=== PATIENT | female | born 1985 | race Caucasian/White ===

== ENCOUNTER 2018-01-28 23:53 | Emergency (ER) | payer OTHER ==
[2018-01-29] MEDS ORDERED: SODIUM CHLORIDE 0.9% 1,000 ML IV STA (00:06)
[2018-01-29] MEDS ORDERED: ONDANSETRON 4 MG/2 ML VIAL IVP STA (00:06)
[2018-01-29] MEDS ORDERED: KETOROLAC 30 MG/ML 1 ML VIAL IVP STA (00:06)
[2018-01-29] MEDS ORDERED: MORPHINE SULFATE 4MG/4ML SYRG IVP STA (00:06)
--- NOTE | 2018-01-29 00:08 | ED ---
Abdominal Pain HPI - General Chief Complaint: Abdominal Pain Stated Complaint: abd pain Time Seen by Provider: 01/29/18 00:01 Source: patient Mode of arrival: ambulatory Limitations: no limitations - History of Present Illness Initial Comments: 32-year-old female patient presents to the emergency department today for complaints of left flank pain. Patient states the pain started approximately 8: 30 this evening. States that the pain was sudden onset is a sharp crampy pain and has worsened in severity since then. Patient states that she has vomited multiple times. States that she has felt chills. Denies any fever. States that she did have an episode of diarrhea with this. Patient denies any abdominal pain. Denies any hematuria, dysuria, urinary frequency, urinary urgency. States that she is currently on her period denies chance of . Patient denies any history of kidney stones or abdominal surgeries. Patient denies any recent rash, shortness breath, chest pain, numbness, tingling , dizziness, weakness, headache, visual changes, or any other complaints. - Related Data Previous Rx's Medication Instructions Recorded Hydrocodone/Acetaminophen [[place] 1 tab PO Q6HR PRN #12 tab 01/29/18 5-325] Ibuprofen [Motrin] 600 mg PO Q8HR PRN #30 tab 01/29/18 Ondansetron [Zofran ODT] 4 mg PO Q8HR PRN #10 tab 01/29/18 Tamsulosin HCl [Flomax] 0.4 mg PO DAILY #7 cap 01/29/18 Allergies Allergy/AdvReac Type Severity Reaction Status Date / Time No Known Allergies Allergy Verified 01/28/18 23:58 Review of Systems ROS Statement: Those systems with pertinent positive or pertinent negative responses have been documented in the HPI. ROS Other: All systems not noted in ROS Statement are negative. Past Medical History Past Medical History: No Reported History History of Any Multi-Drug Resistant Organisms: None Reported Past Surgical History: No Surgical Hx Reported Past Psychological History: No Psychological Hx Reported Smoking Status: Never smoker Past Alcohol Use History: Occasional Past Drug Use History: None Reported General Exam Limitations: no limitations General appearance: alert, in no apparent distress, other (This is a well- developed, well-nourished adult female patient in no acute distress. Vital signs upon presentation are temperature 97.2F, pulse 76, respirations 18, blood pressure 133/80, pulse ox 100% on room air.) Eye exam: Present: normal appearance, PERRL, EOMI. Absent: scleral icterus, conjunctival injection, periorbital swelling ENT exam: Present: normal exam, normal oropharynx, mucous membranes moist Respiratory exam: Present: normal lung sounds bilaterally. Absent: respiratory distress, wheezes, rales, rhonchi, stridor Cardiovascular Exam: Present: regular rate, normal rhythm, normal heart sounds. Absent: systolic murmur, diastolic murmur, rubs, gallop, clicks GI/Abdominal exam: Present: soft, normal bowel sounds. Absent: distended, tenderness, guarding, rebound, rigid Back exam: Present: normal inspection, CVA tenderness (L). Absent: CVA tenderness (R) Neurological exam: Present: alert, oriented X3, CN II-XII intact Psychiatric exam: Present: normal affect, normal mood Skin exam: Present: warm, dry, intact, normal color. Absent: rash Course Vital Signs 01/28/18 23:56 Temperature 97.2 F L Pulse Rate 76 Respiratory 18 Rate Blood Pressure 133/80 O2 Sat by Pulse 100 Oximetry Medical Decision Making - Medical Decision Making 32-year-old female patient presented to the emergency department today with complaints of left flank pain and vomiting. Physical examination did reveal some mild left flank tenderness. Abdomen was soft and nontender. Labs reviewed and did reveal an elevated BUN at 21. Urinalysis was positive for greater than 182 red blood cells. HCG was negative. KUB of the abdomen was overall unremarkable however did show a suspicious calcification in the left pelvis. CT of the abdomen and pelvis was obtained and did show a small calculus in the left distal ureter causing obstruction with hydronephrosis. Patient was informed of all results. She is instructed to follow-up with urology soon as possible. She'll be given pain management, nausea management and Flomax for her symptoms. Return parameters discussed in detail. She verbalizes understanding and agrees with this plan. - Lab Data Result diagrams: 01/29/18 00:15 01/29/18 00:15 Lab Results 01/29/18 01/29/18 01/29/18 Range/Units 00:15 00:15 00:50 WBC 8.7 (3.8-10.6) k/uL RBC 5.01 (3.80-5.40) m/uL Hgb 14.2 (11.4-16.0) gm/dL Hct 40.6 (34.0-46.0) % MCV 81.1 (80.0-100.0) fL MCH 28.4 (25.0-35.0) pg MCHC 35.1 (31.0-37.0) g/dL RDW 12.7 (11.5-15.5) % Plt Count 318 (150-450) k/uL Neutrophils % 68 % Lymphocytes % 23 % Monocytes % 3 % Eosinophils % 4 % Basophils % 1 % Neutrophils # 6.0 (1.3-7.7) k/uL Lymphocytes # 2.0 (1.0-4.8) k/uL Monocytes # 0.3 (0-1.0) k/uL Eosinophils # 0.4 (0-0.7) k/uL Basophils # 0.0 (0-0.2) k/uL Sodium 144 (137-145) mmol/L Potassium 3.4 L (3.5-5.1) mmol/L Chloride 107 (98-107) mmol/L Carbon Dioxide 20 L (22-30) mmol/L Anion Gap 17 mmol/L BUN 21 H (7-17) mg/dL Creatinine 0.90 (0.52-1.04) mg/dL Est GFR (CKD-EPI)AfAm >90 (>60 ml/min/1.73 sqM) Est GFR (CKD-EPI)NonAf 87 (>60 ml/min/1.73 sqM) Glucose 114 H (74-99) mg/dL Calcium 9.8 (8.4-10.2) mg/dL Total Bilirubin 0.3 (0.2-1.3) mg/dL AST 16 (14-36) U/L ALT 21 (9-52) U/L Alkaline Phosphatase 75 (38-126) U/L Total Protein 7.2 (6.3-8.2) g/dL Albumin 4.3 (3.5-5.0) g/dL Amylase 65 (30-110) U/L Lipase 90 (23-300) U/L Urine Color Urine Appearance (Clear) Urine pH (5.0-8.0) Ur Specific [place] (1.001-1.035) Urine Protein (Negative) Urine Glucose (UA) (Negative) Urine Ketones (Negative) Urine Blood (Negative) Urine Nitrite (Negative) Urine Bilirubin (Negative) Urine Urobilinogen (<2.0) mg/dL Ur Leukocyte Esterase (Negative) Urine RBC (0-5) /hpf Urine WBC (0-5) /hpf Ur Squamous Epith Cells (0-4) /hpf Urine Mucus (None) /hpf Urine HCG, Qual Not Detected (Not Detectd) 01/29/18 Range/Units 00:50 WBC (3.8-10.6) k/uL RBC (3.80-5.40) m/uL Hgb (11.4-16.0) gm/dL Hct (34.0-46.0) % MCV (80.0-100.0) fL MCH (25.0-35.0) pg MCHC (31.0-37.0) g/dL RDW (11.5-15.5) % Plt Count (150-450) k/uL Neutrophils % % Lymphocytes % % Monocytes % % Eosinophils % % Basophils % % Neutrophils # (1.3-7.7) k/uL Lymphocytes # (1.0-4.8) k/uL Monocytes # (0-1.0) k/uL Eosinophils # (0-0.7) k/uL Basophils # (0-0.2) k/uL Sodium (137-145) mmol/L Potassium (3.5-5.1) mmol/L Chloride (98-107) mmol/L Carbon Dioxide (22-30) mmol/L Anion Gap mmol/L BUN (7-17) mg/dL Creatinine (0.52-1.04) mg/dL Est GFR (CKD-EPI)AfAm (>60 ml/min/1.73 sqM) Est GFR (CKD-EPI)NonAf (>60 ml/min/1.73 sqM) Glucose (74-99) mg/dL Calcium (8.4-10.2) mg/dL Total Bilirubin (0.2-1.3) mg/dL AST (14-36) U/L ALT (9-52) U/L Alkaline Phosphatase (38-126) U/L Total Protein (6.3-8.2) g/dL Albumin (3.5-5.0) g/dL Amylase (30-110) U/L Lipase (23-300) U/L Urine Color Yellow Urine Appearance Clear (Clear) Urine pH 6.5 (5.0-8.0) Ur Specific [place] 1.020 (1.001-1.035) Urine Protein Trace H (Negative) Urine Glucose (UA) Negative (Negative) Urine Ketones 1+ H (Negative) Urine Blood Large H (Negative) Urine Nitrite Negative (Negative) Urine Bilirubin Negative (Negative) Urine Urobilinogen <2.0 (<2.0) mg/dL Ur Leukocyte Esterase Negative (Negative) Urine RBC >182 H (0-5) /hpf Urine WBC 2 (0-5) /hpf Ur Squamous Epith Cells 3 (0-4) /hpf Urine Mucus Rare H (None) /hpf Urine HCG, Qual (Not Detectd) - Radiology Data Radiology results: report reviewed, image reviewed Two-view x-ray of the two-view x-ray of the abdomen shows bowel gas pattern is normal. No sign of intestinal obstruction or pneumoperitoneum. Fecal pattern is normal. I see no pathologic calcifications. Lung bases are clear. There is a faint 3 mm calcification in the pelvis on the left side. Impression by Dr. Trevino shows nonacute abdomen. No evidence of renal calculus. Left- sided pelvic calcification is uncertain significance. Distal ureteral stone is possible. CT of the abdomen and pelvis without contrast was obtained. Report was reviewed in its entirety. Impression by Dr. Trevino shows small calculus obstructing the left upper collecting system of the distal left ureter with left -sided hydronephrosis and perinephric edema. Multiple bilateral small renal calculi. Disposition Clinical Impression: Kidney stone on left side, Hydronephrosis Disposition: HOME SELF-CARE Condition: Good Instructions: Kidney Stones (ED), How to Strain Your Urine (ED) Additional Instructions: Increase fluids. Take medications as directed. Follow-up with urology as soon as possible. Return here immediately for any new, worsening, or concerning symptoms. Prescriptions: Hydrocodone/Acetaminophen [[place] 5-325] 1 tab PO Q6HR PRN #12 tab PRN Reason: Pain Ibuprofen [Motrin] 600 mg PO Q8HR PRN #30 tab PRN Reason: Pain Ondansetron [Zofran ODT] 4 mg PO Q8HR PRN #10 tab PRN Reason: Nausea Tamsulosin HCl [Flomax] 0.4 mg PO DAILY #7 cap Referrals: Curry Ureña MD [STAFF PHYSICIAN] - 1-2 days Time of Disposition: 01:45
[2018-01-29 00:22] LABS: Basophils % (A) 1 %; Eosinophils # (A) 0.4 k/uL (0-0.7); Eosinophils % (A) 4 %; HCT 40.6 % (34.0-46.0); HGB 14.2 gm/dL (11.4-16.0); Lymphocytes % (A) 23 %; MCH 28.4 pg (25.0-35.0); MCHC 35.1 g/dL (31.0-37.0); MCV 81.1 fL (80.0-100.0); Mean Platelet Volume 6.5; Monocytes # (A) 0.3 k/uL (0-1.0); Monocytes % (A) 3 %; Neutrophils % (A) 68 %; Platelet Count 318 k/uL (150-450); RBC 5.01 m/uL (3.80-5.40); RDW 12.7 % (11.5-15.5); WBC 8.7 k/uL (3.8-10.6)
[2018-01-29 00:35] LABS: ALT 21 U/L (9-52); AST 16 U/L (14-36); Albumin 4.3 g/dL (3.5-5.0); Alkaline Phosphatase 75 U/L (38-126); Amylase 65 U/L (30-110); Anion Gap 17 mmol/L; Blood Urea Nitrogen 21 mg/dL (7-17); Calcium 9.8 mg/dL (8.4-10.2); Carbon Dioxide 20 mmol/L (22-30); Chloride 107 mmol/L (98-107); Glucose 114 mg/dL (74-99); Lipase 90 U/L (23-300); Potassium 3.4 mmol/L (3.5-5.1); Sodium 144 mmol/L (137-145); Total Bilirubin 0.3 mg/dL (0.2-1.3); Total Protein 7.2 g/dL (6.3-8.2)
[2018-01-29 01:09] LABS: Appearance,Urine Clear (Clear); Bilirubin,Urine Negative (Negative); Blood,Urine Large (Negative); Color,Urine Yellow; Glucose,Urine (UA) Negative (Negative); Ketones,Urine 1+ (Negative); Leukocyte Esterase,Urine Negative (Negative); Mucus,Urine Rare /hpf; Nitrite,Urine Negative (Negative); PH, Urine 6.5 (5.0-8.0); Protein,Urine Trace (Negative); RBC,Urine >182 /hpf (0-5); Squamous Epithelial Cell,Urine 3 /hpf (0-4); Urobilinogen,Urine <2.0 mg/dL (<2.0); WBC,Urine 2 /hpf (0-5)
--- NOTE | 2018-01-29 01:23 | XR ---
EXAMINATION TYPE: XR KUB DATE OF EXAM: 01/29/2018 COMPARISON: 08/15/2009 HISTORY: Abdominal pain TECHNIQUE: 2 views FINDINGS: Bowel gas pattern is normal. There is no sign of intestinal obstruction or pneumoperitoneum . Fecal pattern is normal. I see no pathologic calcifications. Lung bases are clear. There is a faint 3 mm calcification in the pelvis on the left side. IMPRESSION: Nonacute abdomen. No evidence of a renal calculus. Left-sided pelvic calcification of unc ertain significance. Distal ureteral stone is possible..
--- NOTE | 2018-01-29 01:41 | CT ---
EXAMINATION TYPE: CT abdomen pelvis wo con DATE OF EXAM: 01/29/2018 COMPARISON: NONE HISTORY: No prior, Possible Kidney stone, left Posterior abd pain. -HCG CT DLP: 326.10 mGycm Automated exposure control for dose reduction was used. TECHNIQUE: Helical acquisition of images was performed from the lung bases through the pelvis. FINDINGS: Lung bases are clear. There is no pleural effusion. Heart size is normal. Liver spleen pancreas gallbladder appear normal. Bile ducts are not dilated. There is no adrenal mass . There are a few calcifications in both kidneys and the largest measures 4 mm in the lower pole right kidney. There is left-sided hydronephrosis and hydroureter. There is a 4 mm calcification in the dist al left ureter 3 cm from the urinary bladder. The bladder distends smoothly. Uterus is anteverted. Th ere is no evidence of a pelvic mass. Bony structures are intact. I see no intestinal wall thickening. There are no dilated loops. There is no retroperitoneal adenopat hy. There is no ascites. There is no sign of appendicitis. IMPRESSION: SMALL CALCULUS OBSTRUCTING THE LEFT UPPER COLLECTING SYSTEM IN THE DISTAL LEFT URETER WITH LEFT-SIDED HYDRONEPHROSIS AND PERINEPHRIC EDEMA. MULTIPLE BILATERAL SMALL RENAL CALCULI.
[2018-01-29] MEDS ORDERED: TAMSULOSIN 0.4 MG CAP.ER.24H PO STA (01:43)
[2018-01-29] MEDS ORDERED: ONDANSETRON 4 MG ODT STARTER PACK 2 TAB BTL PO STA (01:47)
[2018-01-29] MEDS ORDERED: ACET/COD 300 MG/30 MG STARTER PACK 6 TAB BTL PO STA (01:47)
[2018-01-29 02:35] VITALS: BP 119/58; PULSE 78; RESP 16; TEMP 98.3
== END 2018-01-29 02:35 | disposition home or self-care (01) ==
LOC: EC 23:53
DX: N13.2 Hydronephrosis with renal and ureteral calculous obstruction (principal)
CPT/HCPCS: 36415; 80053; 82150; 83690; 85025; 81001; 81025; 74018; 74176; 99284; 96374; 96375 ×2; 96361; J2405; J1885; S0119; J2270

== ENCOUNTER 2023-02-04 02:05 | Outpatient (CLI) | payer OTHER ==
[2023-02-04 05:53] LABS: Basophils % (A) 0 %; Eosinophils # (A) 0.1 k/uL (0-0.7); Eosinophils % (A) 1 %; HCT 30.2 % (34.0-46.0); HGB 10.1 gm/dL (11.4-16.0); Hypochromasia Slight; Lymphocytes % (A) 16 %; MCH 28.4 pg (25.0-35.0); MCHC 33.6 g/dL (31.0-37.0); MCV 84.7 fL (80.0-100.0); Mean Platelet Volume 6.9; Monocytes # (A) 0.2 k/uL (0-1.0); Monocytes % (A) 2 %; Neutrophils % (A) 79 %; Platelet Count 368 k/uL (150-450); Poikilocytosis Slight; RBC 3.57 m/uL (3.80-5.40); RDW 14.7 % (11.5-15.5); WBC 6.3 k/uL (3.8-10.6)
[2023-02-04 06:21] VITALS: BP 115/77; PULSE 92; RESP 16; TEMP 98.8
--- NOTE | 2023-03-11 11:27 | P.MSEPDOC ---
Presenting Problems - Arrival Data Date of Arrival on Unit: 02/04/23 Time of Arrival on Unit: 02:05 Mode of Transport: Stretcher - Complaint OB-Reason for Admission/Chief Complaint: Vaginal Bleeding Comment: Pt 11 days with c/o increased vaginal bleeding Medical History - Information : 3 Para: 3 Term: 3 : 0 Abortions: Spontaneous or Elective: 0 Number of Living Children: 3 - Gestational Age Gestational Age by JOHNNIE (wks/days): 41 Weeks and 4 Days Review of Systems - Review of Systems Constitutional: No problems Breast: No problems ENT: No problems Cardiovascular: No problems Respiratory: No problems Gastrointestinal: No problems Genitourinary: No problems Musculoskeletal: No problems Neurological: No problems Skin: No problems Vital Signs - Temperature Temperature: 98.8 F Temperature Source: Temporal Artery Scan - Pulse Pulse Oximetery Pulse Rate: 92 Pulse Assessment Method: Pulse Oximetry - Respirations Respiratory Rate: 16 Oxygen Delivery Method: Room Air O2 Sat by Pulse Oximetry: 98 - Blood Pressure Right Arm Blood Pressure: 115/77 Blood Pressure Mean: 89 Blood Pressure Source: Automatic Cuff Physician Notification - Physician Notified Physician Notified Date: 02/04/23 Physician Notified Time: 02:44 Physician: Genoveva Reyes New Order Received: No - Notification Comment Comment: Multiple attempts to contact on cellphone, pager and home phone between [phone]. Dr. Sepulveda called [phone], states to continue to call Dr. Reyes because pt is stable at this time. multiple more attemps to contact Dr. Reyes between [phone] on cellphone, pager and home phone. [phone] Francisco, chief of OB. Ultimately through chain of command, received orders from Dr. Patten, chief nuclear medicine technologist at 0450. Maternal Triage Index - Maternal Triage Index Presenting for scheduled procedure w/no complaint: No - Stat/Priority 1 Stat Priority 1: No - Urgent/Priority 2 Urgent Priority 2: No - Prompt/Priority 3 Prompt Priority 3: No - Non-Urgent/Priority 4 Non-Urgent Priority 4: Yes Criteria Met for Priority 4: Pt presents to triage 0205 with c/o increased bleeding. Pt is 11 days. and was in the kitchen preparing a bottle when she felt a gush. Pt took a. picture of pad and showed it to this RN. Pad shown is heavily saturated with pooling. noted. Pt states that she experienced a pospartum hemorrhage after delivery and. required 1 unit of blood. Pt denies clots and states that bleeding has been normal. except for the one gush of blood she experienced which was what prompted her to call. EMS. Disposition - Disposition OB Disposition: Discharge to home, Written follow up instructions reviewed Discharge Date: 02/04/23 Discharge Time: 05:55 I agree with the RN Medical Screening Exam: Yes Physician's MSE Comment: I have neither seen nor examined the patient. Case reviewed; plan agreed upon as documented in EMR&OBIX.: Yes Diagnosis: RELATED CONDITIONS, UNSPECIFIED, THIRD TRIMESTER
== END 2023-02-04 05:55 | disposition home or self-care (01) ==
LOC: FBPOP 02:05
PROVIDERS: ATTEND Obstetrics & Gynecology
DX: O26.893 Other specified pregnancy related conditions, third trimester (principal); Z3A.41 41 weeks gestation of pregnancy
CPT/HCPCS: 36415; 85025; 99213